=== PATIENT | male | born 1965 | race Caucasian/White ===

== ENCOUNTER 2019-03-10 06:26 | Inpatient (IN) ==
[2019-03-10] MEDS ORDERED: PANTOPRAZOLE IV 40 MG VIAL IVP ONE (06:53)
[2019-03-10] MEDS ORDERED: ONDANSETRON 4 MG/2 ML VIAL IVP ONE ×2 (06:53→08:08)
[2019-03-10] MEDS ORDERED: Sodium Chloride 0.9% 1,000 ML PRIMARY IV ONE ×2 (06:53→08:20)
[2019-03-10] MEDS ORDERED: HYDROmorphone 2 MG/1 ML IVP ONE ×2 (06:53→08:09)
[2019-03-10 07:18] LABS: BASOPHILS # (AUTO) 0.03 10*3/UL; BASOPHILS % (AUTO) 0.4 % (0-1); EOSINOPHILS # (AUTO) 0.08 10*3/UL; Hematocrit [HCT] 41.3 % (42.0-52.0); Hemoglobin [HGB] 15.5 g/dL (14.0-18.0); LYMPHOCYTES # (AUTO) 1.16 10*3/uL; MEAN CORPUSCULAR HGB CONC 37.5 g/dL (33-37); MEAN CORPUSCULAR VOLUME 83.9 FL (80-90); MEAN PLATELET VOLUME 8.4 FL (7.4-12.2); MONOCYTES # (AUTO) 0.59 10*3/UL (0.3-0.8); MONOCYTES % (AUTO) 7.4 % (5-15); NEUTROPHILS # (AUTO) 6.03 10*3/UL; NEUTROPHILS % (AUTO) 76.2 % (50-80); RED BLOOD COUNT 4.92 10^6/uL (4.70-6.10)
[2019-03-10 07:19] LABS: BLOOD UREA NITROGEN 6 mg/dL (7-22); SERUM ALBUMIN 4.6 g/dL (3.5-4.8)
[2019-03-10 07:28] LABS: PLATELET MORPHOLOGY COMMENT NORMAL MORPHOLOGY (NORM); RBC MORPHOLOGY COMMENT NORMAL MORPHOLOGY (NORM); WBC MORPHOLOGY COMMENT NORMAL MORPHOLOGY (NORM)
[2019-03-10 08:08] LABS: BILIRUBIN,URINE NEGATIVE (NEG); CLARITY,URINE CLEAR (CLEAR); COLOR,URINE YELLOW (Y); GLUCOSE, URINE (UA) NEGATIVE (NEG); OCCULT BLOOD,URINE Trace-intact (NEG); PROTEIN,URINE 100 mg/dl (NEG); UROBILINOGEN,URINE 0.2 EU/dL (0.2)
--- NOTE | 2019-03-10 08:13 | DI ---
CT Abdomen/Pelvis W Contrast,03/10/2019 6:54 AM: Clinical History: Abdominal pain Previous Exam: None at this facility. Findings: Multiple helically acquired CT images are obtained through the abdomen and pelvis following the intra venous administration of contrast. Lung bases are clear. The appendix is normal. The gallbladder is distended but within normal limits. There is mild bilateral hydronephrosis, but there is no ureteral stone. There is distention of the urinary bladder. Large and small bowel loops are not well evaluated but are grossly normal. There is no free air and no free fluid. Postsurgical changes are seen within the stomach and gastroesophageal junction. There is a simple 4.5 cm a cyst in the inferior pole left kidney. Postsurgical changes are seen at the L5/S1 level with bilateral laminectomies and transpedicular and interbody fusion. The anterior abdominal wall demonstrates some edema. There is a defect within the upper anterior abdominal wall measuring 3.6 cm with extrusion of omental fat. The adrenals, pancreas and spleen are unremarkable. Impression: 1. Large, distended urinary bladder likely causing mild bilateral hydronephrosis. Correlate clinicall y as this could represent neurogenic bladder or outlet obstruction. 2. 3.6 cm fat-containing ventral hernia in the upper abdomen.
[2019-03-10 08:14] LABS: URINE SAMPLE TYPE CLEAN CATCH URINE
[2019-03-10 08:15] LABS: SQUAMOUS EPITHELIAL CELL,UR MANY
[2019-03-10 08:17] LABS: URINE SAMPLE TYPE CLEAN CATCH URINE; URINE SPECIFIC GRAVITY - MAN 1.015
[2019-03-10 08:21] LABS: AMPHETAMINE SCREEN NEGATIVE (NEG); CANNABINOID SCREEN,URINE NEGATIVE (NEG); COCAINE SCREEN NEGATIVE (NEG); METHADONE URINE SCREEN NEGATIVE (NEG); METHAMPHETAMINES SCREEN,URINE NEGATIVE (NEG); OPIATE SCREEN,URINE NEGATIVE (NEG)
--- NOTE | 2019-03-10 08:44 | PDOC ---
General Adult HPI - General Chief Complaint: Nausea / Vomiting / Diarrhea Stated Complaint: I have been drinking for 4 days Date Seen by Provider: 03/10/19 Time Seen by Provider: 06:40 Source: POSITIVE: Patient, Spouse Exam Limitations: POSITIVE: No limitations Nurse's Notes Reviewed & Considered: Yes - History of Present Illness Initial Comment: The patient is a 53-year-old male who is brought to the emergency room by his . Patient states that for the last 4 days he has been on an alcoholic binge. He states he's been drinking an excessive 18 beers daily. For the past 2 days he has had some upper abdominal pain and nausea but no vomiting. He states his stools have been somewhat loose and they appear to him to be "black". Patient had a gastric bypass several years ago and has lost "300 pounds "according to patient. Patient last drank alcohol around 9 PM last night, approximately 9 hours [employer] no fevers or chills. He states he "just feels really bad". He's had no abdominal surgery except his gastric bypass. He has had low back surgery. Have you received a tetanus shot in the past 10 years?: Unknown Body Location Affected: REPORTS: Abdomen Timing: REPORTS: Gradual, Getting Worse Duration: >24 hours (2 days) Severity: Moderate Quality: REPORTS: "Pain" (Upper abdominal and periumbilical discomfort) Context: REPORTS: Other (Has been drinking heavily for the past 4 days) Modifying Factors: improves with: Nothing Similar Symptoms Previously: No Recent Care Received: REPORTS: Denies Any Prior Injuries Related to Current Complaint?: No - Patient Home Medications Home Medications: Home Medications Omeprazole Magnesium [Prilosec Otc] 20 mg PO DAILY 03/10/19 - Patient Allergies Allergies/Adverse Reactions: Allergies Allergy/AdvReac Type Severity Reaction Status Date / Time No Known Allergies Allergy Verified 03/10/19 06:38 Past Medical History - heen HEENT History: Denies History Cardiovascular History: Hypertension Additional Cardiovasular History: IMPROVED AFTER GASTRIC BIPASS Respiratory History: Denies History Gastrointestinal History: GERD, Other (please comment) Additional Gastrointestinal History: gastric bypass Genitourinary History: Denies History Endocrine History: Denies History Musculoskeletal History: Denies History Prosthesis or Implant: No Neurological History: Denies History Blood Disorders: Denies History Psychiatric History: Substance Abuse History of Sexually Transmitted Diseases: No Cancer History: Denies History In Past Year Been Physically Harmed or Verbally Threatened: No History of MDRO: No History of Other Communicable Diseases: No Tobacco Use: Current Every Day Smoker Alcohol Use: Heavy Type of alcohol normally used: Beer In the Past 12 Months, Have Used or Abuse Any Substance: None Previous Surgical History: Yes Type / Date of Surgery: cervical fusion, gastric bypass, SKIN GRAFTS Anesthesia Reactions: No Malignant Hyperthermia: No Significant Family History: No pertinent family hx Past Medical History Reviewed: Reviewed - No Changes ROS - Limitations ROS Limitations: No Limitations Constitution: REPORTS: Weakness, Other (Malaise, "I feel really bad ") Cardiovascular: REPORTS: Denies Cardiac Symptoms Respiratory: REPORTS: Denies Resp Symptoms Neurological: REPORTS: Denies Neuro Symptoms Gastrointestinal: REPORTS: Abdominal Pain, Nausea Endocrine: REPORTS: Denies Symptoms Musculoskeletal: REPORTS: Denies MS Symptoms Genitourinary: REPORTS: Denies Symptoms Eyes: REPORTS: Denies Symptoms ENT: REPORTS: Denies Symptoms Skin: REPORTS: Denies Skin Symptoms Lympathic: REPORTS: Denies Lympathic Symptoms Immunologic: POSITIVE: Denies Symptoms Psychiatric: POSITIVE: Denies Psych Symptoms General Adult Exam - General Appearance General Appearance: POSITIVE: Alert, Cooperative, No Evidence of Trauma, Moderate Distress. NEGATIVE: No Acute Distress - HEENT HEENT: POSITIVE: Head Inspection Nml, Eyes Inspection Nml, Ears Inspection Nml, Nose Inspection Nml, Oral/Dental Inspect. Nml, Pharynx Inspect. Nml, PERRL, EOMI - Pupils Pupil Size: 3 mm: Bilateral (PERRLA) - Neck Neck: POSITIVE: Normal Inspection, Thyroid Normal - Respiratory Respiratory: POSITIVE: No Respiratory Distress, Breath Sounds Normal, Chest Non- Tender - Cardiovascular Cardiovascular: POSITIVE: Regular Rate & Rhythm, No Murmur, No Gallop, PMI Normal Peripheral Pulses: Radial (R): 2+, Radial (L): 2+ - Abdomen Abdomen: Soft: (All Quadrants), Normal Bowel Sounds: (All Quadrants), Denies Tenderness: (RLQ), (LLQ), No Splenomegaly: (All Quadrants), No Hepatomegaly: (All Quadrants), No Guarding: (All Quadrants), No Rebound: (All Quadrants), No Palpable Pulse: (All Quadrants), No Palpabale Mass: (All Quadrants), No Distention: (All Quadrants), No Rigidity: (All Quadrants), Tenderness Noted: (RUQ), (LUQ) Additional Abdominal Details: Abdominal examination shows bowel sounds to be present. Patient has some poorly localized discomfort on direct palpation over the epigastrium and periumbilical area. No masses, organomegaly or rebound. - Rectal Rectal: POSITIVE: Non Tender, Normal Rectal Tone, Black Stool, Heme Positive Stool (Mildly). NEGATIVE: Heme Negative Stool (Mildly heme positive) - Back Back: POSITIVE: Normal Inspection - Skin Skin: POSITIVE: Normal Color, Warm, Dry, No Rash - Extremities Extremity: Non-Tender: (All Extremities), Normal ROM: (All Extremities), Normal Inspection: (All Extremities) - Neurological / Psychological Neurological: POSITIVE: Affect Apporpriate, Oriented X3, pot maker Normal As Tested, Motor Normal, Sensation Normal Images - Complete Complete: 1 - Abdominal discomfort General Adult Progress - Results Reviewed by me Xrays/CTs/US Reviewed by me: Yes Discussed with Radiologist: Yes Radiology Findings: CT scan abdomen and pelvis with IV contrast is read by rad iologist as being normal except for some moderate bilateral hydronephrosis and bladder distention; no stones. Incidentally noted is the sequelae of his previous laminectomy. Status post gastric bypass. Lab Results Reviewed by Me: Yes (sodium 119; blood alcohol 118 carbon dioxide 19 lactate 4.5) Lab Results:: Laboratory Results 03/10/19 03/10/19 03/10/19 06:55 06:55 06:55 WBC 7.92 RBC 4.92 Hgb 15.5 Hct 41.3 L MCV 83.9 MCH 31.5 H MCHC 37.5 H RDW Std Deviation 40.5 RDW Coeff of Baljinder 13.4 Plt Count 370 H MPV 8.4 Immature Gran % (Auto) 0.4 Neut % (Auto) 76.2 Lymph % (Auto) 14.6 Traill % (Auto) 7.4 Eos % (Auto) 1.0 Baso % (Auto) 0.4 Immature Gran # (Auto) 0.03 Neut # (Auto) 6.03 Lymph # (Auto) 1.16 Traill # (Auto) 0.59 Eos # (Auto) 0.08 Baso # (Auto) 0.03 WBC Morphology Comment Normal morphology Plt Morphology Comment Normal morphology RBC Morph Comment Normal morphology Sodium 119 L* Potassium 3.7 L Chloride 80 L Carbon Dioxide 19 L Anion Gap 20 BUN 6 L Creatinine 0.5 L Estimated GFR > 60 BUN/Creatinine Ratio 12.00 Glucose 105 Calculated Osmolality 245.0 L Lactic Acid 4.5 H Calcium 8.6 L Total Bilirubin 0.9 AST 47 ALT 23 Alkaline Phosphatase 89 Total Protein 7.5 Albumin 4.6 Globulin 2.9 Albumin/Globulin Ratio 1.50 Amylase 103 Lipase 245 Ur Collection Type Urine Color Urine Clarity Urine pH Ur Specific Dudley U Specif Grav (Refrac) Urine Protein Urine Glucose (UA) Urine Ketones Urine Occult Blood Urine Nitrate Urine Bilirubin Urine Urobilinogen Ur Leukocyte Esterase Urine RBC Urine WBC Ur Squamous Epith Cells Ur Renal Epithelial Cell Urine Crystals Urine Bacteria Urine Casts Urine Mucus Urine Trichomonas Urine Yeast Ur Culture Indicated? Urine Opiates Screen Ur Buprenorphine Ur Oxycodone Screen Urine Methadone Screen Ur Propoxyphene Screen Barbiturate Screen U Tricyclic Antidepress Phencyclidine Screen Amphetamines Screen U Methamphetamines Scrn Benzodiazepines Screen Cocaine Screen U Marijuana (THC) Screen Serum Alcohol 03/10/19 03/10/19 03/10/19 06:55 07:57 07:57 WBC RBC Hgb Hct MCV MCH MCHC RDW Std Deviation RDW Coeff of Baljinder Plt Count MPV Immature Gran % (Auto) Neut % (Auto) Lymph % (Auto) Traill % (Auto) Eos % (Auto) Baso % (Auto) Immature Gran # (Auto) Neut # (Auto) Lymph # (Auto) Traill # (Auto) Eos # (Auto) Baso # (Auto) WBC Morphology Comment Plt Morphology Comment RBC Morph Comment Sodium Potassium Chloride Carbon Dioxide Anion Gap BUN Creatinine Estimated GFR BUN/Creatinine Ratio Glucose Calculated Osmolality Lactic Acid Calcium Total Bilirubin AST ALT Alkaline Phosphatase Total Protein Albumin Globulin Albumin/Globulin Ratio Amylase Lipase Ur Collection Type Clean catch urine Clean catch urine Urine Color Yellow Urine Clarity Clear Urine pH 7.0 Ur Specific Dudley 1.010 U Specif Grav (Refrac) 1.015 Urine Protein 100 A Urine Glucose (UA) Negative Urine Ketones Trace A Urine Occult Blood Trace-intact H Urine Nitrate Negative Urine Bilirubin Negative Urine Urobilinogen 0.2 Ur Leukocyte Esterase Negative Urine RBC 1-3 Urine WBC 1-3 Ur Squamous Epith Cells Many Ur Renal Epithelial Cell None Urine Crystals None Urine Bacteria None Urine Casts None Urine Mucus None Urine Trichomonas None Urine Yeast None Ur Culture Indicated? Culture not set Urine Opiates Screen Negative Ur Buprenorphine Negative Ur Oxycodone Screen Negative Urine Methadone Screen Negative Ur Propoxyphene Screen Negative Barbiturate Screen Negative U Tricyclic Antidepress Negative Phencyclidine Screen Negative Amphetamines Screen Negative U Methamphetamines Scrn Negative Benzodiazepines Screen Negative Cocaine Screen Negative U Marijuana (THC) Screen Negative Serum Alcohol 118 H CBC and BMP: 03/10/19 06:55 03/10/19 06:55 - Patient's Progress Pain Medication Addressed: POSITIVE: Yes (Patient medicated with morphine sulfate and Dilaudid IV in the emergency room along with Zofran) School/Work Release Addressed: POSITIVE: Not Applicable Re-Examine Time: 08:25 Re-Examine Comment: Patient feeling some better after analgesia and antinauseants. Patient so far received about 1200 mL of normal saline in the emergency room. Case was discussed with Dr. Cornelius, hospitalist, who has admitted the patient for further evaluation and treatment. Status: POSITIVE: Improved, Re-Examined Antibiotics Given: No - Consult Consult (If Yes, Name of Consulting MD & Time Called): Yes (Dr. Cornelius, [id number]) Consulting MD will see pt:: POSITIVE: [facility] Admit Counseled: POSITIVE: Patient, Family (), RE: Lab Results, RE: Radiology Results, RE: DX, RE: Need for F/U Patient Care Time - Estimated PCT Patient Care Time (In Minutes): 55 Vital Signs - Recent Vital Signs Vital Signs: Vital Signs (Last 8 hours) Temp Pulse Resp BP Pulse Ox 03/10/19 06:36 96.6 F L 83 20 152/94 96 - VS Reviewed Vital Signs Reviewed: Yes Discharge Clinical Impression: Abdominal pain, Hyponatremia, Alcohol abuse, Gastrointestinal bleeding Discharge Disposition: Admit to Inpatient Condition: Fair Patient Problem(s) Reviewed: Yes Follow Up With: NONE,NONE [Primary Care Provider] - Date Decision to Admit to Inpatient: 03/10/19 Time Decision to Admit to Inpatient: 08:00
[2019-03-10 09:05] LABS: VENOUS PH 7.37 (7.32-7.42)
[2019-03-10] MEDS ORDERED: Prochlorperazine Edisylate Inj 10mg/2ml vial IVP ONE (09:54)
[2019-03-10] MEDS ORDERED: LORazepam 1 mg tab (ETOH withdrawal) PO PRN (11:49)
[2019-03-10] MEDS ORDERED: LIDOCAINE W/ SODIUM BICARB 0.5 ML SYR SUBD PRN (11:49)
[2019-03-10] MEDS ORDERED: MAG HYDROX/AL HYDROX/SIMETH 30 ML SUSP PO PRN (11:49)
[2019-03-10] MEDS ORDERED: MAGNESIUM 400 MG/5 ML - 30 ML (MILK OF MAGNESIA) PO PRN (11:49)
[2019-03-10] MEDS ORDERED: Prochlorperazine Edisylate Inj 10mg/2ml vial IVP PRN (11:49)
[2019-03-10] MEDS ORDERED: Loperamide Tab 2 MG TABLET PO PRN (11:49)
[2019-03-10] MEDS ORDERED: LORazepam Inj(ETOH withdrawal) 2 MG/ML VIAL IVP PRN (11:49)
[2019-03-10] MEDS ORDERED: ONDANSETRON 4 MG/2 ML VIAL IVP PRN (11:49)
[2019-03-10 12:00] LABS: BLOOD UREA NITROGEN 4 mg/dL (7-22)
--- NOTE | 2019-03-10 12:13 | PDOC ---
HPI - History of Present Illness Date of Service: 03/10/19 Time of Service: 15:30 Chief Complaint: Headache, nausea started today History of Present Illness: This is a 53 years old the male with medical history significant for history of previous gastric bypass and previous admission to the hospital for hyponatremia who was brought to the hospital because he is been having nausea, headaches for the last 2 days. Patient went on a drinking binge he is been drinking about 18 beers a day since last . He had nausea but no vomiting. He did have some loose stool somewhat dark. He is not eating well he didn't eat today or yesterday. Because of that he came into the ER he was found to be hyponatremic with a sodium of 119. He had a CT of the abdomen and pelvis which showed bladder distention and bilateral hydronephrosis which was mild no stones. In the ER he was given anti-emetics, pain medication was given saline and was adm itted. By the time patient came into the floor his main complaint was his headache now. Patient did say that he urinated earlier. Past Medical History Medical History: 1. History of gastric bypass in 2001. 2. History of previous admission for hyponatremia in May [facility]. 3. Alcoholism. 4. Reflux Surgical History: 1. History of gastric bypass in 2001 Family History: Reviewed an Not Pertinent Past Social History: Patient smokes a pack a day for about 10 years, he said he binge drinks about drinking 18 beers a day the last few days, prior to this time the last time he had a drink was more than a month ago. He said he doesn't go to DTs. No drugs. Tobacco Use: Current Every Day Smoker In the Past 12 Months, Have Used or Abuse Any of the Following Substance: None Medication / Allergies Home Medications: Home Medications Medication Instructions Recorded Confirmed Omeprazole Magnesium [Prilosec Otc] 20 mg PO DAILY 03/10/19 03/10/19 Allergies/Adverse Reactions: Allergies Allergy/AdvReac Type Severity Reaction Status Date / Time No Known Allergies Allergy Verified 03/10/19 12:18 Review of Systems - Review of Systems All Systems: Reviewed & No Additional Complaints Except as Stated Exam - Vitals Vital Signs: Vital Signs Temperature 97 F Temperature Source Temporal Artery Scan Pulse Rate [Pulse Oximeter 75 Right] Pulse Rate 75 Respiratory Rate 20 Blood Pressure [Left Arm] 152/94 Blood Pressure 160/93 Pulse Ox 96 Oxygen Flow Rate 94 Oxygen Delivery Method Room Air Height 5 ft 11 in Weight 210 lb - General General Appearance: No Acute Distress, Cooperative - Head Head Exam: Normal Inspection - Eye Eye Exam: POSITIVE: Normal Appearance - ENT ENT Exam: POSITIVE: Normal Exam - Neck Neck Exam: Normal Inspection - Respiratory Respiratory Exam: POSITIVE: Clear to Auscultation - Bilaterally - Cardiovascular Cardiovascular Exam: POSITIVE: RRR - GI/Abdominal GI/Abdominal Exam: POSITIVE: Normal Bowel Sounds, Non Tender, Non Distended, Soft, No Organomegaly - Rectal Rectal Exam: POSITIVE: Deferred - External Exam: POSITIVE: Deferred Exam: POSITIVE: Deferred - Extremities Extremities Exam: POSITIVE: Normal Inspection - Neurological Neurological Exam: POSITIVE: Alert, Oriented x 3, CN II-XII Intact, No Facial Droop, Speech Intact / Clear - Psychiatric Psychiatric Exam: POSITIVE: Flat Affect - Integumentary Integumentary Exam: POSITIVE: Normal Color Results - Labs CBC and BMP: 03/10/19 06:55 03/10/19 18:26 - Imaging Status: Report Reviewed by Me (CT abdomen 1. Large, distended urinary bladder likely causing mild bilateral hydronephrosis. Correlate clinically as this could represent neurogenic bladder or outlet obstruction. 2. 3.6 cm fat-containing ventral hernia in the upper abdomen.) Assessment and Plan - Patient Problems (1) Hyponatremia Current Visit: Yes Status: Acute Comment: This is probably secondary to alcohol. He did receive a 2 L of normal saline down in the ER. I did recheck his sodium went up to 122 will put him on hypertonic saline recheck his sodium 1 hour after restarting that and see what his level is. We'll do multiple rechecks of his sodium level. will adjust the fluid or rate accordingly. Code(s): E87.1 - Hypo-osmolality and hyponatremia (2) Gastrointestinal bleeding Current Visit: Yes Status: Acute Comment: He did describe some dark stools will check for occult blood. will put him on Protonix. Will repeat his CBC in the morning. He is hemodynamically stable. Code(s): K92.2 - Gastrointestinal hemorrhage, unspecified (3) Alcohol abuse Current Visit: Yes Status: Acute Comment: Will put him on CIWA protocol in case he goes into withdrawal. Code(s): F10.10 - Alcohol abuse, uncomplicated (4) Bilateral hydronephrosis Current Visit: Yes Status: Acute Comment: There is description of mild hydronephrosis with distended bladder, we did a bladder scan and still after he urinated it was still 900 mls in the edith dder so we'll insert a catheter. Consider putting him on Flomax tomorrow. Code(s): N13.30 - Unspecified hydronephrosis
[2019-03-10] MEDS ORDERED: Sodium Chloride 3% 500 ML PRIMARY IV SCH (12:30)
[2019-03-10] MEDS ORDERED: HYDROmorphone 2 MG/1 ML IVP PRN (13:10)
[2019-03-10] MEDS ORDERED: LIDOCAINE HCL 2 % 10 ML JELLY URO-JECT TOPICAL PRN (13:40)
[2019-03-10 15:25] LABS: BLOOD UREA NITROGEN 4 mg/dL (7-22)
[2019-03-10 15:37] LABS: BILIRUBIN,URINE NEGATIVE (NEG); CLARITY,URINE CLEAR (CLEAR); COLOR,URINE YELLOW (Y); GLUCOSE, URINE (UA) NEGATIVE (NEG); OCCULT BLOOD,URINE Trace-intact (NEG); PROTEIN,URINE 100 mg/dl (NEG); UROBILINOGEN,URINE 0.2 EU/dL (0.2)
[2019-03-10 15:45] LABS: BACTERIA,URINE RARE; URINE SAMPLE TYPE VOID
[2019-03-10 18:37] LABS: BLOOD UREA NITROGEN 5 mg/dL (7-22)
[2019-03-10] MEDS ORDERED: ACETAMINOPHEN 325 MG TABLET PO PRN (18:51)
[2019-03-10] MEDS: PANTOPRAZOLE IV 40 MG VIAL IVP SCH (20:38)
[2019-03-10 22:56] LABS: BLOOD UREA NITROGEN 9 mg/dL (7-22)
[2019-03-10] MEDS: D5W 1,000 ML PRIMARY IV SCH (23:28)
[2019-03-10] MEDS ORDERED: Thiamine Tab 100 MG TAB PO ONE ×2 (23:35→23:39)
[2019-03-11 02:51] LABS: BLOOD UREA NITROGEN 8 mg/dL (7-22)
[2019-03-11] MEDS: D5W 1,000 ML PRIMARY IV SCH ×2 (04:07→09:55)
[2019-03-11 05:21] LABS: BASOPHILS # (AUTO) 0.02 10*3/UL; BASOPHILS % (AUTO) 0.2 % (0-1); EOSINOPHILS # (AUTO) 0.11 10*3/UL; EOSINOPHILS % (AUTO) 1.2 % (0-8); Hematocrit [HCT] 40.4 % (42.0-52.0); Hemoglobin [HGB] 14.6 g/dL (14.0-18.0); LYMPHOCYTES # (AUTO) 1.23 10*3/uL; MEAN CORPUSCULAR HGB CONC 36.1 g/dL (33-37); MEAN CORPUSCULAR VOLUME 85.4 FL (80-90); MEAN PLATELET VOLUME 8.5 FL (7.4-12.2); MONOCYTES # (AUTO) 0.99 10*3/UL (0.3-0.8); MONOCYTES % (AUTO) 10.7 % (5-15); NEUTROPHILS # (AUTO) 6.84 10*3/UL; NEUTROPHILS % (AUTO) 74.3 % (50-80); RED BLOOD COUNT 4.73 10^6/uL (4.70-6.10)
[2019-03-11 05:31] LABS: PLATELET MORPHOLOGY COMMENT NORMAL MORPHOLOGY (NORM); RBC MORPHOLOGY COMMENT NORMAL MORPHOLOGY (NORM); WBC MORPHOLOGY COMMENT NORMAL MORPHOLOGY (NORM)
[2019-03-11 05:38] LABS: BLOOD UREA NITROGEN 8 mg/dL (7-22)
--- NOTE | 2019-03-11 07:21 | PDOC(PROG) ---
Date of Service: 03/11/19 Time of Service: 07:00 Interval History: Subjective Patient feels a lot better he said compared to yesterday. No nausea no headache today. No bowel movements since he's been here no diarrhea. Objective : Data - Labs CBC and BMP: 03/11/19 04:55 03/11/19 13:02 Objective : Exam - General General Appearance: No Acute Distress, Cooperative - Head Head Exam: Normal Inspection - Eye Eye Exam: Normal Appearance - ENT ENT Exam: Normal Exam - Neck Neck Exam: Normal Inspection - Respiratory Respiratory Exam: Clear to Auscultation - Bilaterally - Cardiovascular Cardiovascular Exam: RRR - GI/Abdominal GI/Abdominal Exam: Normal Bowel Sounds, Non Tender, Non Distended, Soft, No Organomegaly - Rectal Rectal Exam: Deferred - External Exam: Deferred Exam: Deferred - Extremities Extremities Exam: Normal Inspection - Back Back Exam: Normal Inspection - Neurological Neurological Exam: Alert, Oriented x 3, CN II-XII Intact, No Facial Droop, Speech Intact / Clear, Moves All Extremities Equally - Psychiatric Psychiatric Exam: Normal Affect - Integumentary Integumentary Exam: Normal Color Assessment and Plan - Patient Problems (1) Hyponatremia Current Visit: Yes Status: Acute Comment: This is improved, the rise is 7 meq within 24 hours, however his output is 5900 ml, I discussed with nephrology Dr. Galan in [place] about giving him DDAVP and he agrees. We'll recheck his sodium after receiving DDAVP. Will manage the fluid depending on the sodium level. Code(s): E87.1 - Hypo-osmolality and hyponatremia (2) Gastrointestinal bleeding Current Visit: Yes Status: Acute Comment: Not clear to me whether he had a bleed or not I did order occult blood however did not have a bowel movement yet. Based on his description more like dark stool not melena. His hemoglobin did not drop much. Continue Protonix. Code(s): K92.2 - Gastrointestinal hemorrhage, unspecified (3) Alcohol abuse Current Visit: Yes Status: Acute Comment: He is on CIWA scale per protocol, however he did not need any Ativan. There is no evidence of withdrawal yet. Code(s): F10.10 - Alcohol abuse, uncomplicated (4) Bilateral hydronephrosis Current Visit: Yes Status: Acute Comment: We did put a catheter he need to follow-up with urology. We'll try to get him an appointment. I think will start on Flomax tomorrow. Code(s): N13.30 - Unspecified hydronephrosis
[2019-03-11] MEDS: PANTOPRAZOLE IV 40 MG VIAL IVP SCH (08:42)
[2019-03-11] MEDS: Multivitamin Tab 1 TAB PO SCH (08:42)
[2019-03-11] MEDS: Thiamine Tab 100 MG TAB PO SCH (08:42)
[2019-03-11 09:25] LABS: BLOOD UREA NITROGEN 7 mg/dL (7-22); BUN/CREATININE RATIO 11.66 (6-20)
[2019-03-11 13:14] LABS: BLOOD UREA NITROGEN 8 mg/dL (7-22); BUN/CREATININE RATIO 13.33 (6-20)
[2019-03-11 17:19] LABS: BLOOD UREA NITROGEN 10 mg/dL (7-22); BUN/CREATININE RATIO 16.66 (6-20)
[2019-03-11] MEDS: PANTOPRAZOLE 40 MG TABLET PO SCH (21:04)
[2019-03-11 23:32] LABS: BLOOD UREA NITROGEN 11 mg/dL (7-22); BUN/CREATININE RATIO 18.33 (6-20)
[2019-03-12 05:25] LABS: BLOOD UREA NITROGEN 8 mg/dL (7-22)
[2019-03-12] MEDS: Thiamine Tab 100 MG TAB PO SCH (08:33)
[2019-03-12] MEDS: Multivitamin Tab 1 TAB PO SCH (08:34)
[2019-03-12] MEDS: PANTOPRAZOLE 40 MG TABLET PO SCH (08:34)
[2019-03-12] MEDS ORDERED: TAMSULOSIN 0.4 MG CAPSULE PO SCH (09:00)
[2019-03-12] MEDS ORDERED: POTASSIUM CHLORIDE 20 MEQ TAB PO ONE (09:32)
[2019-03-12 09:56] VITALS: O2SAT 99
[2019-03-12 10:12] LABS: BLOOD UREA NITROGEN 7 mg/dL (7-22); SERUM ALBUMIN 4.4 g/dL (3.5-4.8)
--- NOTE | 2019-03-12 12:19 | DCSUMMARY ---
Hospitalization Summary Admit Date: 03/10/2019 Discharge Date: 03/12/19 Primary Diagnosis:: hyponatremia, improved, otto Hospital Course: This very pleasant 53-year-old male that came in intoxicated, and was found to have a very low sodium. He had symptoms of hyponatremia. He was admitted, was initially placed on 3% normal saline, and eventually had to go on D5W to help mitigate the rise of sodium and improvement in sodium level. Overall, the patient's sodium was able to be increased to 127, he had no untoward side effects from this, he had no evidence of any stroke or weakness or nausea or vomiting or seizure problems. His potassium was corrected. His protein and albumin levels were actually found to be reasonable. The patient admits that when he drinks he can drink upwards of a case or more per night of beer. He probably has a combination of either beer drinker brynia him a reset Osmo stat, or a little of both. He has had consistently low sodiums for several years now. As another issue, during the hospital stay, he was found to have urinary retention. His prostate was very large on CT scan so was presumed he probably had benign prostatic hypertrophy. His PSA was normal. A urology appointment was arranged. I recommended the patient keep his catheter in place until he visited with urology to have it removed in the office, but he does not want to do this and he prefers to just take his chances on Flomax alone. I did warn him that if he does not quit drinking alcohol, Flomax may not be an option for him due to potential hyponatremia. I also discussed with the patient that if his prostate is blocking and causing hydronephrosis, that he could develop kidney failure, but he refuses to keep the catheter in place at this time. Today, he has no chest pain, no shortness breath, no nausea or vomiting. Assessment and Plan: 1. As per discharge assessments noted 2. Disposition: Patient is discharged home. 3. Condition on discharge, stable and improved. 4. Diet: regular diet 5. Activities: resume normal activities, but I advised the patient to quit drinking 6. Follow-Up: 1. Dr. Patel one week 2. Dr. Youssef in one week 7. Medications at the Time of Discharge: Home Medications Medication Instructions Recorded Confirmed Multivitamin Tab [Thera Tab] 1 tab PO DAILY #30 tab 03/12/19 Tamsulosin HCl [Flomax] 0.4 mg PO DAILY #30 cap 03/12/19 8. Time, care, counseling and coordination of care for this discharge is less than 30 minutes. Exam - Vitals Vital Signs: Vital Signs Temperature 97.8 F Temperature Source Oral Pulse Rate [Pulse Oximeter 70 Right] Pulse Rate [left middle finger 72 ] Pulse Rate 73 Respiratory Rate 16 Blood Pressure [Right Arm] 131/92 Blood Pressure [Left Arm] 139/94 Blood Pressure 128/78 Pulse Ox [left middle finger] 99 Pulse Ox 95 Oxygen Flow Rate 94 Oxygen Delivery Method [left Room Air middle finger] Oxygen Delivery Method Room Air Height 5 ft 11 in Weight 208 lb 1.6 oz - General General Appearance: No Acute Distress, Cooperative - Eye Eye Exam: POSITIVE: No Scleral Icterus - ENT ENT Exam: POSITIVE: Mucous Membranes Moist - Neck Neck Exam: JVP is not Raised - Respiratory Respiratory Exam: POSITIVE: Clear to Auscultation - Bilaterally, Breathing Non Labored - Cardiovascular Cardiovascular Exam: POSITIVE: RRR, No Murmur, No Clicks, No Gallops, No Rubs, No JVD - GI/Abdominal GI/Abdominal Exam: POSITIVE: Normal Bowel Sounds, Non Tender, Non Distended, Soft - Extremities Extremities Exam: POSITIVE: No Clubbing Present, No Edema Present, No Cyanosis Present - Neurological Neurological Exam: POSITIVE: Alert, Oriented x 3, Normal Gait, No Facial Droop, Speech Intact / Clear, Moves All Extremities Equally - Psychiatric Psychiatric Exam: POSITIVE: Normal Affect, Normal Mood Data Peritnent Studies: 03/10/19 03/10/19 03/12/19 06:55 06:55 04:55 PT INR Sodium 119 L* Potassium Chloride Carbon Dioxide Anion Gap BUN Creatinine Estimated GFR BUN/Creatinine Ratio Glucose Calculated Osmolality Calcium Total Bilirubin AST ALT Alkaline Phosphatase Total Protein Albumin Globulin Albumin/Globulin Ratio PSA Screen 0.665 Serum Alcohol 118 H 03/12/19 03/12/19 09:47 10:00 PT 11.6 INR 1.01 Sodium 127 L Potassium 5.4 H D Chloride 90 L Carbon Dioxide 28 Anion Gap 9 BUN 7 Creatinine 0.5 L Estimated GFR > 60 BUN/Creatinine Ratio 14.00 Glucose 115 H Calculated Osmolality 262.0 L Calcium 9.4 Total Bilirubin 1.3 H AST 50 ALT 33 Alkaline Phosphatase 92 Total Protein 7.5 Albumin 4.4 Globulin 3.1 Albumin/Globulin Ratio 1.40 PSA Screen Serum Alcohol Procedures: [address] [facility] [place] [id number] PH: DD: [phone] FAX: [phone] ~DIAGNOSTIC IMAGING REPORT~ Patient: Ariel Hdz : 1965 Sex: M Age: 53 Exam Name: CT Abdomen/Pelvis W Contrast Exam Date: 03/10/19 Report # : [id number] CPT Code: 17170 EMR/MR #: [id number] Ordering: NISHANT LLANOS Admiting: Primary: NONE,NONE Attending: Signed CT Abdomen/Pelvis W Contrast,03/10/2019 6:54 AM: Clinical History: Abdominal pain Previous Exam: None at this facility. Findings: Multiple helically acquired CT images are obtained through the abdomen and pelvis following the intravenous administration of contrast. Lung bases are clear. The appendix is normal. The gallbladder is distended but within normal limits. There is mild bilateral hydronephrosis, but there is no ureteral stone. There is distention of the urinary bladder. Large and small bowel loops are not well evaluated but are grossly normal. There is no free air and no free fluid. Postsurgical changes are seen within the stomach and gastroesophageal junction. There is a simple 4.5 cm a cyst in the inferior pole left kidney. Postsurgical changes are seen at the L5/S1 level with bilateral laminectomies and transpedicular and interbody fusion. The anterior abdominal wall demonstrates some edema. There is a defect within the upper anterior abdominal wall measuring 3.6 cm with extrusion of omental fat. The adrenals, pancreas and spleen are unremarkable. Impression: 1. Large, distended urinary bladder likely causing mild bilateral hydronephrosis. Correlate clinically as this could represent neurogenic bladder or outlet obstruction. 2. 3.6 cm fat-containing ventral hernia in the upper abdomen. Dictated By: 03/10/19 0803 BREANN SILVA MD. Signed By: 03/10/19 0813 BREANN SILVA MD. Patient Problems - Patient Problem List (1) Hyponatremia Current Visit: Yes Status: Acute Code(s): E87.1 - Hypo-osmolality and hyponatremia Category: Medical (2) BPH (benign prostatic hyperplasia) Current Visit: Yes Status: Acute Code(s): N40.0 - Benign prostatic hyperplasia without lower urinary tract symptoms Qualifiers: Lower urinary tract symptom presence: symptoms present Lower urinary tract symptom detail: urinary obstruction Qualified Code(s): N40.1 - Benign prostatic hyperplasia with lower urinary tract symptoms; N13.8 - Other obstructive and reflux uropathy Category: Medical (3) Alcohol abuse Current Visit: Yes Status: Acute Code(s): F10.10 - Alcohol abuse, uncomplicated Category: Medical (4) Bilateral hydronephrosis Current Visit: Yes Status: Acute Code(s): N13.30 - Unspecified hydronephrosis Category: Medical (5) Reset osmostat syndrome Current Visit: Yes Status: Suspected Code(s): E23.3 - Hypothalamic dysfunction, not elsewhere classified Category: Medical
[2019-03-12 12:32] VITALS: BP 135/92; RESP 12; TEMP 97
== END 2019-03-12 13:45 | disposition home or self-care (01) | DRG 641 ==
LOC: ER 06:26 → MED/SURG 11:08
PROVIDERS: ADMIT Internal Medicine; ATTEND Internal Medicine